=== PATIENT | male | born 2000 | race African-American/Black ===

== ENCOUNTER 2023-06-30 17:32 | Emergency (ER) | payer MEDICAID ==
[~2023-06-30] VITALS: Ht 185.4 cm; Wt 104.3 kg
[2023-06-30 18:10] VITALS: BP_SYST 141; PULSE 102; RESP 17; TEMP 98.7; O2SAT 98
[2023-06-30 19:57] LABS: CALCIUM 9.3 mg/dL (8.4-11.0); CREATININE 1.11 mg/dL (0.55-1.30)
[2023-06-30 20:05] LABS: INR 1.2 (0.80-1.20); PROTHROMBIN TIME 12.7 SECS (9.5-12.5)
[2023-06-30 20:10] LABS: EOSINOPHILS # (AUTO) 0.1 K/uL (0.0-0.4); EOSINOPHILS % (AUTO) 1.5 % (0.0-4.0); LYMPHOCYTES # (AUTO) 2.9 K/uL (1.0-5.5); MONOCYTES # (AUTO) 0.9 K/uL (0.0-1.0); NEUTROPHILS # (AUTO) 4.8 K/uL (1.8-7.7); WHITE BLOOD COUNT (AUTO) 8.8 K/uL (4.8-10.8)
[2023-06-30 20:21] LABS: BASOPHILS % (AUTO) 0.3 % (0.0-2.0); HEMATOCRIT 44.4 % (36-54); HEMOGLOBIN 15.6 g/dL (14.0-18.0); MEAN CORPUSCULAR HEMOGLOBIN 31 pg (27-31); MEAN CORPUSCULAR HGB CONC 35 % (32-36); MEAN CORPUSCULAR VOLUME 87 fL (79.0-98.0); MONOCYTES % (AUTO) 10.6 % (1.7-9.3); NEUTROPHILS % (AUTO) 54.6 % (40.0-70.0); PLATELET COUNT (AUTO) 223 K/uL (130-430); RED BLOOD CELL COUNT(AUTO) 5.11 MIL/uL (4.2-6.2); RED CELL DISTRIBUTION WIDTH 14.4 % (9.0-15.0)
[2023-06-30] MEDS ORDERED: NEOM15CR TP (20:35)
[2023-06-30] MEDS ORDERED: TRAM50TA2 PO (20:35)
[2023-06-30] MEDS ORDERED: CLIN-22 PO (20:35)
[2023-06-30] MEDS ORDERED: BACITRACIN 1 GM OINT TP ONE (20:45)
[2023-06-30 20:56] VITALS: BP_SYST 138; PULSE 99; RESP 18; TEMP 98.6; O2SAT 98
== END 2023-06-30 20:56 | disposition home or self-care (01) ==
LOC: SED 17:32
DX: T24.312A Burn of third degree of left thigh, initial encounter (principal); Z79.899 Other long term (current) drug therapy; W93.11XA Contact with liquid air, initial encounter; Y93.89 Activity, other specified; Y92.89 Other specified places as the place of occurrence of the external cause; Y99.8 Other external cause status
CPT/HCPCS: 36415; 80048; 83605; 85025; 85610-TC; 85730-TC; 99283